=== PATIENT | male | born 1970 | race Caucasian/White ===

== ENCOUNTER 2021-11-05 09:37 | Outpatient (CLI) | payer OTHER | END 2021-11-05 23:59 | disposition home or self-care (01) | LOC: RAD 09:37 | PROVIDERS: ATTEND Chiropractor | DX: M13.851 Other specified arthritis, right hip (principal); M13.852 Other specified arthritis, left hip; M13.861 Other specified arthritis, right knee; M13.862 Other specified arthritis, left knee | CPT/HCPCS: 73521; 73564 ==

== ENCOUNTER → 2024-11-05 | Day surgery (SDC) | payer OTHER ==
[2024-10-30 12:40] LABS: APTT 26 SECONDS (22-32); PROTHROMBIN TIME 10.6 SECONDS (9.0-12.0)
[~2024-11-05] VITALS: Ht 180.3 cm; Wt 98.8 kg
[2024-11-05] VITALS (11 sets, daily range): BP systolic 105–138; BP diastolic 71–87; PULSE 56–70; RESP 12–15; TEMP 98; O2SAT 93–98
[~2024-11-05] MED LIST: ACAM333T8 PO; ASPI-1071 PO; ATOR20TA PO; HYDROcodone/acetaminophen 10/325mg tab PO PRN; HYDROcodone/acetaminophen 5mg/325mg tablet PO PRN; LIDOcaine 1% (10mg/ml) 2ml vial ONE; OLAN2.5T3 PO; QUET-1 PO; THIA100T66 PO; fentaNYL/PF 50MCG/1 ML 2ML syringe ONE; heparin 1,000unit/ml 10ml vial 10 ML ONE; iohexol 350MG/ML 100ml bottle IV ONE; midazolam 1 mg/ML 2ml injection ONE; nitroGLYCERIN 500mcg/5mL D5W 5 ML IV ONE; verapamil 2.5 mg/ml inj IV ONE
[2024-11-05 09:56] LABS: BASOPHILS % (AUTO) 0.5 % (0-1); EOSINOPHILS # (AUTO) 0.1 X10'3 (0-0.9); EOSINOPHILS % (AUTO) 1.5 % (0-6); HEMATOCRIT 46.3 % (42.0-52.0); HEMOGLOBIN 15.7 g/dl (14.0-17.9); LYMPHOCYTES # (AUTO) 2.4 X10'3 (1.1-4.8); LYMPHOCYTES % (AUTO) 29.3 % (21-51); MEAN CORPUSCULAR HEMOGLOBIN 31.9 PG (27.0-31.0); MEAN CORPUSCULAR HGB CONC 33.9 g/dL (33.0-36.5); MEAN CORPUSCULAR VOLUME 94.2 FL (78-98); MEAN PLATELET VOLUME 8.7 FL (7.4-10.4); MONOCYTES # (AUTO) 0.5 X10'3 (0-0.9); MONOCYTES % (AUTO) 6.5 % (2-12); NEUTROPHILS # (AUTO) 5.1 X10'3 (1.8-7.7); NEUTROPHILS % (AUTO) 62.2 % (42-75); PLATELET COUNT 161 X10'3 (140-440); RED BLOOD COUNT 4.92 X10'6 (4.70-6.10); RED CELL DISTRIBUTION WIDTH 13.8 % (11.5-14.5); WHITE BLOOD COUNT 8.2 X10'3 (4.5-11.0)
[2024-11-05 10:05] LABS: ALBUMIN 4.1 G/DL (3.4-5.0); ANION GAP 9 (8-16); BLOOD UREA NITROGEN 15 MG/DL (7-18); BUN/CREATININE RATIO 18.1 (10.0-20.0); CALCIUM 8.7 MG/DL (8.5-10.1); CHLORIDE 107 MMOL/L (99-107); CREATININE 0.83 MG/DL (0.60-1.10); GLUCOSE 96 MG/DL (70-104); POTASSIUM 4.1 MMOL/L (3.5-5.1); SODIUM 141 MMOL/L (135-145); eCRCL 108 ML/MIN; eGFR > 90 ML/MIN
[2024-11-05] MEDS: normal saline 1,000 ML IV SCH (10:17)
[2024-11-05] MEDS: LORazepam 0.5 MG tablet PO PRN (10:17)
[2024-11-05] MEDS: diphenhydrAMINE 25mg capsule PO PRN (10:17)
== END | disposition home or self-care (01) ==
LOC: SSTAY O 09:14
PROVIDERS: ATTEND Student in an Organized Health Care Education/Training Program
DX: R94.39 Abnormal result of other cardiovascular function study (principal); I25.10 Atherosclerotic heart disease of native coronary artery without angina pectoris; E78.00 Pure hypercholesterolemia, unspecified; J44.9 Chronic obstructive pulmonary disease, unspecified; K21.9 Gastro-esophageal reflux disease without esophagitis; F32.A Depression, unspecified; R07.89 Other chest pain; Z79.82 Long term (current) use of aspirin; Z79.899 Other long term (current) drug therapy
CPT/HCPCS: 36415; 80048; 85025; 85610; 85730; 93005; 93458; A6258; J1644; J2250; J3010; J3490; J7030; Q0163; Q9967; 99152; A6402; C1894; J2003